=== PATIENT | male | born 1990 | race Asian ===

== ENCOUNTER 2021-09-28 15:54 | Emergency (ER) | payer OTHER ==
[~2021-09-28] VITALS: Ht 175.3 cm; Wt 81.8 kg
[2021-09-28] MEDS ORDERED: LEXA1TAB2 PO (16:03)
[2021-09-28 17:32] LABS: HEMOGLOBIN 15.1 g/dl (13.5-17.5); MEAN CORPUSCULAR HEMOGLOBIN 29.4 pg (27.0-33.0); MEAN CORPUSCULAR HGB CONC 32.8 g/dl (32.0-36.5); MEAN CORPUSCULAR VOLUME 89.5 fl (80.0-96.0); PLATELET COUNT, AUTOMATED 260 10^3/uL (150-450); RED BLOOD COUNT 5.14 10^6/uL (4.30-6.10); WHITE BLOOD COUNT 9.6 10^3/uL (4.0-10.0)
[2021-09-28 17:52] LABS: AMPHETAMINES LEVEL URINE NEGATIVE (NEGATIVE); BARBITURATES URINE NEGATIVE (NEGATIVE); BENZODIAZEPINES URINE NEGATIVE (NEGATIVE); CANNABINOIDS URINE NEGATIVE (NEGATIVE); COCAINE METABOLITE URINE NEGATIVE (NEGATIVE); METHADONE URINE NEGATIVE (NEGATIVE); OPIATES URINE NEGATIVE (NEGATIVE); PHENCYCLIDINE URINE NEGATIVE (NEGATIVE)
[2021-09-28 18:19] LABS: ACETAMINOPHEN LEVEL < 2.0 UG/ML (10.0-30.0); ALBUMIN 4.4 GM/DL (3.2-5.2); ALT/SGPT 33 U/L (12-78); BILIRUBIN,DIRECT 0.1 MG/DL (0.0-0.2); BILIRUBIN,TOTAL 0.4 MG/DL (0.2-1.0); BLOOD UREA NITROGEN 19 MG/DL (7-18); CALCIUM LEVEL 9.3 MG/DL (8.5-10.1); CARBON DIOXIDE LEVEL 28 MEQ/L (21-32); CHLORIDE LEVEL 106 MEQ/L (98-107); CREATININE FOR GFR 1.12 MG/DL (0.70-1.30); ETHYL ALCOHOL (ETHANOL) 0.004 % (0.000-0.010); GLOMERULAR FILTRATION RATE > 60.0 (>60); GLUCOSE, FASTING 94 MG/DL (70-100); POTASSIUM SERUM 3.4 MEQ/L (3.5-5.1); SALICYLATE LEVEL < 1.7 MG/DL (5.0-30.0); SODIUM LEVEL 140 MEQ/L (136-145)
[2021-09-28] MEDS ORDERED: POTASSIUM CHLORIDE 10MEQ SR TABLET PO ONE (18:35)
[2021-09-28] MEDS ORDERED: HOME MED LIST COMPLETE! XX SCH (19:55)
[2021-09-28 21:53] LABS: RSV AMPLIFICATION NEGATIVE (NEGATIVE)
[2021-09-29 03:15] VITALS: BP 126/73
--- NOTE | 2021-09-29 10:14 | ECGEPIP ---
[facility] - ED Test Date: 2021-09-28 Pat Name: SIVAN ROSENTHAL Department: Room: - Gender: Male Medical Reimbursement Specialist: YESENIA : [id number] Requested By: ONUR Osorio Order Number: [id number] Reading MD: Nancy Leon Measurements Intervals [place] Rate: 72 P: 44 SD: 166 QRS: 84 QRSD: 96 T: 65 QT: 404 QTc: 442 Interpretive Statements Normal sinus rhythm early repolarization No prior Electronically Signed on 09-29-2021 10:13:47 EDT by Nancy Leon
== END 2021-09-29 03:18 ==
LOC: M ED 15:54
DX: R45.851 Suicidal ideations (principal); F32.9 Major depressive disorder, single episode, unspecified